=== PATIENT | female | born 1985 | race Native Hawaiian/Other Pacific Islander ===

== ENCOUNTER 2017-01-18 16:10 | Emergency (ER) | payer OTHER ==
[~2017-01-18] VITALS: Ht 175.3 cm; Wt 78.7 kg
== END 2017-01-18 17:54 | disposition home or self-care (01) ==
LOC: ED 16:10
DX: H60.502 Unspecified acute noninfective otitis externa, left ear (principal); H92.02 Otalgia, left ear
CPT/HCPCS: 99281

== ENCOUNTER 2018-02-15 22:06 | Emergency (ER) | payer OTHER ==
[~2018-02-15] VITALS: Ht 175.3 cm; Wt 93.9 kg
[2018-02-15] MEDS ORDERED: DULO60CA2 (22:15)
[2018-02-15 22:53] LABS: PLATELET COUNT 331 K/uL (152-353)
[2018-02-15 23:03] LABS: POTASSIUM 3.6 mmol/L (3.6-5.2)
== END 2018-02-16 00:10 | disposition home or self-care (01) ==
LOC: ED 22:06
PROVIDERS: Specialist
DX: T18.9XXA Foreign body of alimentary tract, part unspecified, initial encounter (principal); T65.92XA Toxic effect of unspecified substance, intentional self-harm, initial encounter; Y92.149 Unspecified place in prison as the place of occurrence of the external cause
CPT/HCPCS: 36415; 74022; 80053; 81000; 81025; 82150; 83690; 85027; 99284

== ENCOUNTER 2019-08-14 13:29 | Emergency (ER) | payer OTHER ==
[~2019-08-14] VITALS: Ht 175.3 cm; Wt 113.4 kg
[~2019-08-14 13:29] MED LIST: DULO60CA2
[2019-08-14 13:40] VITALS: BP 145/92; TEMP 97.9
[2019-08-14 14:20] LABS: PLATELET COUNT 302 K/uL (152-353)
[2019-08-14 14:29] LABS: POTASSIUM 4.1 mmol/L (3.6-5.2)
== END 2019-08-14 15:35 | disposition home or self-care (01) ==
LOC: ED 13:29
PROVIDERS: Emergency Medicine Emergency Medical Services
DX: K29.00 Acute gastritis without bleeding (principal)
CPT/HCPCS: 36415; 80053; 85027; 96360; 96375; 99284; J2405

== ENCOUNTER 2019-10-25 17:17 | Emergency (ER) | payer OTHER ==
[~2019-10-25] VITALS: Ht 175.3 cm; Wt 113.4 kg
[2019-10-25 17:32] VITALS: TEMP 100.1
[2019-10-25 19:03] VITALS: BP 148/69
== END 2019-10-25 19:03 | disposition home or self-care (01) ==
LOC: ED 17:17
DX: B34.9 Viral infection, unspecified (principal); J06.9 Acute upper respiratory infection, unspecified
CPT/HCPCS: 87502; 87651; 99283

== ENCOUNTER 2020-05-06 19:32 | Emergency (ER) | payer OTHER ==
[~2020-05-06] VITALS: Ht 175.3 cm; Wt 93.0 kg
[2020-05-06 19:52] VITALS: TEMP 98.5
[2020-05-06 20:28] LABS: PLATELET COUNT 285 K/uL (152-353)
[2020-05-06 20:39] LABS: POTASSIUM 3.6 mmol/L (3.6-5.2)
[2020-05-06 21:18] VITALS: BP 136/72
== END 2020-05-06 21:30 | disposition home or self-care (01) ==
LOC: ED 19:32
PROVIDERS: Emergency Medicine Emergency Medical Services
DX: N93.8 Other specified abnormal uterine and vaginal bleeding (principal); R10.30 Lower abdominal pain, unspecified; E03.8 Other specified hypothyroidism
CPT/HCPCS: 80053; 81000; 81025; 85027; 87635; 96360; 96375; 99284; G2023; J1885; U00003

== ENCOUNTER 2020-07-11 22:22 | Emergency (ER) | payer OTHER ==
[~2020-07-11] VITALS: Ht 175.3 cm; Wt 93.0 kg
[2020-07-11 23:45] VITALS: BP 156/95; TEMP 98.3
== END 2020-07-11 23:45 | disposition home or self-care (01) ==
LOC: ED 22:22
DX: N73.8 Other specified female pelvic inflammatory diseases (principal)
CPT/HCPCS: 96372; 99283; J0696

== ENCOUNTER 2022-05-22 12:39 | Emergency (ER) | payer OTHER ==
[~2022-05-22] VITALS: Ht 175.3 cm; Wt 93.0 kg
[2022-05-22 12:45] VITALS: TEMP 97.8
[2022-05-22 13:32] VITALS: BP 133/78
== END 2022-05-22 13:35 | disposition home or self-care (01) ==
LOC: ED 12:39
DX: L03.116 Cellulitis of left lower limb (principal); S91.332A Puncture wound without foreign body, left foot, initial encounter; W54.0XXA Bitten by dog, initial encounter; Y92.89 Other specified places as the place of occurrence of the external cause
CPT/HCPCS: 99282

== ENCOUNTER 2022-07-30 21:32 | Emergency (ER) | payer OTHER ==
[~2022-07-30] VITALS: Ht 175.3 cm; Wt 112.5 kg
[2022-07-30 21:45] VITALS: BP 135/88; TEMP 98.9
[2022-07-30 23:00] LABS: PLATELET COUNT 316 K/uL (152-353)
[2022-07-30 23:44] LABS: POTASSIUM 4.1 mmol/L (3.6-5.2)
== END 2022-07-31 01:45 | disposition home or self-care (01) ==
LOC: ED 21:32
PROVIDERS: Emergency Medicine
DX: K52.89 Other specified noninfective gastroenteritis and colitis (principal)
CPT/HCPCS: 36415; 80053; 83690; 85027; 96360; 96374; 99284; J2405

== ENCOUNTER 2022-08-10 23:50 | Emergency (ER) | payer OTHER ==
[~2022-08-10] VITALS: Ht 175.3 cm; Wt 110.7 kg
[2022-08-11 00:05] VITALS: TEMP 98.9
[2022-08-11 01:25] VITALS: BP 143/93
== END 2022-08-11 01:05 | disposition home or self-care (01) ==
LOC: ED 23:50
DX: S93.491A Sprain of other ligament of right ankle, initial encounter (principal); F11.21 Opioid dependence, in remission; W17.89XA Other fall from one level to another, initial encounter; Y92.096 Garden or yard of other non-institutional residence as the place of occurrence of the external cause
CPT/HCPCS: 99282